=== PATIENT | female | born 1970 | race Caucasian/White ===

== ENCOUNTER 2016-12-29 05:48 | Emergency (ER) | payer MEDICARE, OTHER, MEDICAID ==
[~2016-12-29 05:48] MED LIST: BACLOFEN10 M1 PO; DILAUDID2 M1 PO; FOLIC ACID1 M1 PO; IRON325 M2 PO; LORAZEPAM0.5 M1 PO; METHOTREXATE2.5 M1 PO; NORCO 5-325 TA1 EACH PO; OMEPRAZOLE20 M3 PO; OXYBUTYNIN CHLOR5 M2 PO; OXYCODONE-ACET1 EAC3 PO; OXYCONTIN20 M2 PO; PERCOCET 5-3251 EACH PO; PREDNISONE10 M1 PO; PREDNISONE5 M1 PO; PROTONIX40 M2 PO; STOP HOME MEDICATION; TOPAMAX50 M3 PO; TOPIRAMATE100 M1 PO; TRAMADOL HCL50 M2 PO; WELLBUTRIN XL300 M3 PO; ZOFRAN8 M1 PO
[2016-12-29] MEDS ORDERED: OMEPRAZOLE20 M3 PO (06:02)
[2016-12-29] MEDS ORDERED: VITAMIN B122500 MCG PO (06:04)
[2017-03-06] MEDS ORDERED: NORCO 5-325 TA1 EACH PO ×2 (08:57→09:03)
[2017-03-06] MEDS ORDERED: ZOFRAN4 M2 PO (09:03)
== END 2016-12-29 07:22 ==
LOC: EDMED 05:48
DX: G43.909 Migraine, unspecified, not intractable, without status migrainosus (principal); Z86.73 Personal history of transient ischemic attack (TIA), and cerebral infarction without residual deficits; Z87.891 Personal history of nicotine dependence; Z79.899 Other long term (current) drug therapy
CPT/HCPCS: J1885; J2405; J7030

== ENCOUNTER 2017-01-08 14:34 | Observation (INO) | payer MEDICARE, OTHER, MEDICAID ==
[~2017-01-08 14:34] MED LIST changes: +VITAMIN B122500 MCG PO
[2017-01-08] MEDS ORDERED: DICYCLOMINE HCL20 M1 PO (14:49)
[2017-01-08 15:44] LABS: BASO % 0.4 % (0-2); EOS % 1.1 % (0-7); EOSINOPHIL ABSOLUTE COUNT 0.1 tho/cmm (0.0-0.7); HCT-HEMATOCRIT 36.7 % (34.0-49.0); HGB-HEMOGLOBIN 11.1 gm/dl (12.0-15.5); IMMATURE GRANULOCYTES ABSOLUTE 0.02 tho/cmm (0-0.03); IMMATURE GRANULOCYTES PERCENT 0.3 % (0-0.3); LYMPH % 24.2 % (20-45); LYMPH ABSOLUTE COUNT 1.7 tho/cmm (0.8-4.5); MCH (MEAN CORPUSCULAR HGB) 24.7 pg (28.0-32.0); MCHC MEAN CORPUSCULAR HGB CONC 30.2 % (32.0-36.0); MCV (MEAN CELL VOLUME) 81.6 fl (82.0-96.0); MONO % 6.4 % (0-12); MONOCYTE ABSOLUTE COUNT 0.5 tho/cmm (0.0-1.2); NEUTROPHIL ABSOLUTE COUNT 4.7 tho/cmm (1.6-8.0); NEUTROPHIL-AUTOMATED 4.7 tho/cmm (1.6-8.0); NEUTROPHILS % 67.6 % (40-80); PLATELET COUNT 328 tho/cmm (150-450)
[2017-01-08 16:00] LABS: ANION GAP 13 mmol/L (0-20); BLOOD UREA NITROGEN 18 mg/dl (6-24); CALCIUM 8.6 mg/dl (8.5-10.5); CARBON DIOXIDE-VENOUS 21 mmol/L (22-32); CHLORIDE 113 mmol/l (96-110); CREATININE 0.68 mg/dl (0.50-1.10); GLUCOSE 80 mg/dL (70-110); POTASSIUM 3.7 mmol/L (3.7-5.1); SODIUM 143 mmol/L (135-145); eGFR VALUE FOR BLACK >90 mL/Min
[2017-01-08] MEDS ORDERED: PROBIOTIC1 EAC9 PO (18:35)
[2017-01-08] MEDS ORDERED: PEPTO-BISM262 MG/11 PO (18:35)
[2017-01-09] MEDS ORDERED: TENORMIN25 M1 PO (08:44)
[2017-03-06] MEDS ORDERED: NORCO 5-325 TA1 EACH PO ×2 (08:57→09:03)
[2017-03-06] MEDS ORDERED: ZOFRAN4 M2 PO (09:03)
== END 2017-01-09 09:35 ==
LOC: EDMED 14:34 → EMR2 17:57 → CAR1 18:40
PROVIDERS: Emergency Medicine; ADMIT Internal Medicine Cardiovascular Disease
DX: R07.89 Other chest pain (principal); M06.9 Rheumatoid arthritis, unspecified; I78.0 Hereditary hemorrhagic telangiectasia; R06.00 Dyspnea, unspecified; Z79.899 Other long term (current) drug therapy; Z88.5 Allergy status to narcotic agent; Z88.8 Allergy status to other drugs, medicaments and biological substances; Z91.048 Other nonmedicinal substance allergy status; Z87.891 Personal history of nicotine dependence; Z82.49 Family history of ischemic heart disease and other diseases of the circulatory system; Z90.49 Acquired absence of other specified parts of digestive tract; Z90.710 Acquired absence of both cervix and uterus; Z98.890 Other specified postprocedural states
CPT/HCPCS: C8929; G0378